=== PATIENT | female | born 1955 | race Caucasian/White ===

== ENCOUNTER 2019-03-01 10:42 | Day surgery (SDC) | payer BC ==
[~2019-03-01 10:42] MED LIST: Bupivacaine 0.5% 50 ML MDV ONE; Lidocaine 1% with EPINEPHrine 1:100,000 50 ML MDV ONE; Lidocaine 2% Jelly 10 ML Urojet ONE
[2019-03-01] MEDS ORDERED: Sodium Chloride 0.9% 1,000 ML IV SCH (11:15)
[2019-03-01] MEDS ORDERED: fentaNYL 100 MCG/2 ML SDV ONE (11:16)
[2019-03-01] MEDS ORDERED: Midazolam 1 MG/ML 2 ML SDV ONE (11:16)
[2019-03-01] MEDS ORDERED: Propofol 200 MG/20 ML SDV ONE (11:17)
[2019-03-01] MEDS ORDERED: Ondansetron 4 MG/2 ML SDV ONE (12:34)
[2019-03-01] MEDS ORDERED: Flumazenil 0.1 MG/ML 5 ML MDV ONE (13:47)
[2019-03-01 15:11] VITALS: BP 123/67; PULSE 73
--- NOTE | 2019-03-04 08:30 | OR ---
DATE OF PROCEDURE: 03/01/2019 SURGEON: Eze Faria MD PROCEDURE: 1. Colonoscopy. 2. Hemorrhoid banding. FINDINGS: 1. Normal colon. 2. Prominent internal hemorrhoid, banded. COMPLICATION: None. [employer]URAL [employer]ER: None. PREOPERATIVE DIAGNOSIS: Screening colonoscopy and grade 2 hemorrhoid. POSTOPERATIVE DIAGNOSIS: Screening colonoscopy and grade 2 hemorrhoid. RISKS: Risks, benefits, alternatives, and limitations including, but not limited to, infection, bleeding, and perforation were explained to the patient, who wished to proceed. PROCEDURE IN DETAIL: The patient was placed in left lateral decubitus position. Digital rectal exam was performed. An internal hemorrhoid was noted. The scope was introduced and advanced atraumatically to the ileocecal valve. The scope was brought back through the ascending, transverse, descending colon, and retroflexed. No masses, no polyps. No old or new blood. No diverticulosis. On retroflex, the patient had a single prominent hemorrhoid. This was then banded endoscopically without difficulty. The patient tolerated the procedure well. Eze Faria MD /[id number]
== END 2019-03-01 15:32 | disposition home or self-care (01) ==
LOC: JP.SDS 10:42
PROVIDERS: ATTEND Surgery
DX: Z12.11 Encounter for screening for malignant neoplasm of colon (principal); K64.1 Second degree hemorrhoids; I10 Essential (primary) hypertension; E78.5 Hyperlipidemia, unspecified; E66.9 Obesity, unspecified; Z88.8 Allergy status to other drugs, medicaments and biological substances; Z80.0 Family history of malignant neoplasm of digestive organs; Z68.31 Body mass index [BMI] 31.0-31.9, adult
CPT/HCPCS: 45398; J2250; J2405; J2704; J3010; J3490; J7030

== ENCOUNTER 2024-02-05 09:52 | Emergency (ER) | payer MEDICARE, BC ==
[2024-02-05 11:40] LABS: BASOPHILS PERCENT AUTO 0.4 % (0.1-1.3); EOSINOPHILS PERCENT AUTO 1.8 % (0.0-5.4); HEMATOCRIT 43.7 % (34.3-46.0); HEMOGLOBIN 15.1 g/dL (11.2-15.5); IMMATURE GRAN PERCENT AUTO 0.2 % (0.0-0.7); LYMPHOCYTES ABSOLUTE AUTO 1.03 K/uL (0.8-3.3); LYMPHOCYTES PERCENT AUTO 18.2 % (11.4-47.7); MEAN CORPUSCULAR HEMOGLOBIN 31.9 pg (31.6-35.5); MEAN CORPUSCULAR HGB CONC 34.6 g/dL (31.6-35.5); MEAN CORPUSCULAR VOLUME 92.4 fL (81.4-99.0); MONOCYTES ABSOLUTE AUTO 0.83 K/uL (0.20-0.90); MONOCYTES PERCENT AUTO 14.6 % (3.3-12.6); NEUTROPHILS ABSOLUTE AUTO 3.68 K/uL (1.0-7.6); NEUTROPHILS PERCENT AUTO 64.8 % (40.0-78.1); PLATELET COUNT,PLT 183 K/uL (130-375); RED BLOOD CELL COUNT 4.73 M/uL (3.77-5.24); WHITE BLOOD CELL COUNT,WBC 5.7 K/uL (3.2-11.0)
[2024-02-05 11:45] LABS: BASOPHILS ABSOLUTE AUTO 0.02 K/uL (0.00-0.10); IMMATURE GRAN ABSOLUTE AUTO 0.01 K/uL (0.00-0.23)
[2024-02-05] MEDS: Sodium Chloride 0.9% 1,000 ML IV SCH (11:49)
[2024-02-05] MEDS: Loperamide 2 MG Cap PO ONE (11:49)
[2024-02-05 12:00] LABS: A/G RATIO 0.9 (1.2-2.2); ALANINE AMINOTRANSFERASE,ALT 52 U/L (12-78); ALBUMIN 3.4 g/dL (3.4-5.0); ALKALINE PHOSPHATASE 117 U/L (46-116); ANION GAP 9.6 mmol/L (5.0-14.0); ASPARTATE AMNIOTRANSFERASE,AST 32 U/L (15-37); BILIRUBIN TOTAL 0.6 mg/dL (0.2-1.0); BLOOD UREA NITROGEN,BUN 15 mg/dL (7-18); CALCIUM 9.3 mg/dL (8.5-10.1); CARBON DIOXIDE,CO2 26 mmol/L (21-32); CHLORIDE,CL 105 mmol/L (100-108); CREATININE 1.1 mg/dL (0.6-1.0); EST CRCL DRUG DOSING (CG) 46.46 mL/min; ESTIMATED GFR 55 mL/min (>60); GLUCOSE RANDOM 97 mg/dL (74-106); SODIUM,NA 141 mmol/L (140-148)
[2024-02-05 13:04] LABS: APPEARANCE,URINE CLEAR (CLEAR); BILIRUBIN,URINE NEGATIVE (NEGATIVE); COLOR,URINE YELLOW (YELLOW); GLUCOSE,URINE NEGATIVE (NEGATIVE); KETONES,URINE NEGATIVE (NEGATIVE); LEUKOCYTE ESTERASE,URINE NEGATIVE (NEGATIVE); NITRITE,URINE NEGATIVE (NEGATIVE); OCCULT BLOOD,URINE NEGATIVE (NEGATIVE); PH,URINE 5.5 (5.0-8.0); PROTEIN,URINE NEGATIVE (NEGATIVE); UROBILINOGEN,URINE 0.2 EU/dL (0.2-1.0)
[2024-02-05] MEDS: Sodium Chloride 0.9% 10 ML Syringe FLUSH ONE (13:06)
[2024-02-05] MEDS: Iopamidol 612 MG/ML 100 ML Bottle IV PRN (13:06)
[2024-02-05] MEDS: Sodium Chloride 0.9% 80 ML IV SCH (13:06)
[2024-02-05 13:15] LABS: AMORPHOUS SEDIMENT,URINE NOT SEEN; BACTERIA,URINE FEW; EPITHELIAL CELLS,URINE RARE; MUCUS,URINE RARE; RBC,URINE 0-5 (0-5); WBC,URINE 0-5 (0-5)
[2024-02-05] MEDS: Alum Hydrox/Mag Hydrox/Simeth 15 ML, Lidocaine 2% 15 ML PO ONE (14:12)
[2024-02-05] MEDS ORDERED: Sodium Chloride 0.9% 1,000 ML IV SCH (14:15)
[2024-02-05] MEDS: HYDROmorphone 0.5 MG/0.5 ML Syringe IVPUSH ONE ×2 (16:19→18:01)
[2024-02-05] MEDS ORDERED: Pantoprazole 40 MG Vial IVPUSH ONE (17:05)
[2024-02-05 17:20] VITALS: BP 143/68; PULSE 85
[2024-02-05] MEDS: Pantoprazole 40 MG Vial IVPUSH ONE (17:22)
== END 2024-02-05 18:11 | disposition home or self-care (01) ==
LOC: JP.ED 09:52
DX: E86.0 Dehydration (principal); B34.9 Viral infection, unspecified; R10.12 Left upper quadrant pain; I10 Essential (primary) hypertension; E78.00 Pure hypercholesterolemia, unspecified; E66.9 Obesity, unspecified; Z90.49 Acquired absence of other specified parts of digestive tract; Z90.710 Acquired absence of both cervix and uterus; Z88.8 Allergy status to other drugs, medicaments and biological substances; Z79.82 Long term (current) use of aspirin; Z79.899 Other long term (current) drug therapy; Z68.31 Body mass index [BMI] 31.0-31.9, adult
CPT/HCPCS: 36415; 74177; 80053; 81001; 83690; 85025; 86140; 96361; 96374; 96375; 96376; 99284; A9270; J1171; J2470; J3490; J7030; Q9967

== ENCOUNTER 2024-09-18 08:20 | Day surgery (SDC) | payer MEDICARE, BC ==
[2024-09-18] MEDS ORDERED: fentaNYL 50 MCG/ML SDV ONE (08:44)
[2024-09-18] MEDS ORDERED: Propofol 200 MG/20 ML SDV ONE ×2 (08:44→10:32)
[2024-09-18] MEDS: Lactated Ringers 1,000 ML IV SCH (09:04)
[2024-09-18] MEDS ORDERED: Ondansetron 4 MG/2 ML SDV ONE (09:14)
[2024-09-18 11:34] VITALS: BP 121/62; PULSE 74
== END 2024-09-18 11:45 | disposition home or self-care (01) ==
LOC: JP.SDS 08:20
PROVIDERS: ATTEND Surgery
DX: Z12.11 Encounter for screening for malignant neoplasm of colon (principal); K57.30 Diverticulosis of large intestine without perforation or abscess without bleeding; I10 Essential (primary) hypertension; E66.9 Obesity, unspecified; Z80.0 Family history of malignant neoplasm of digestive organs
CPT/HCPCS: 00812; G0105; J2405; J2704; J3010; J7120